=== PATIENT | female | born 1955 | race Caucasian/White ===

== ENCOUNTER 2020-06-28 18:30 | Emergency (ER) | payer MEDICARE | END 2020-06-28 20:35 | disposition home or self-care (01) | LOC: CSHERS 18:30 | DX: J06.9 Acute upper respiratory infection, unspecified (principal); J40 Bronchitis, not specified as acute or chronic; K21.9 Gastro-esophageal reflux disease without esophagitis; E78.5 Hyperlipidemia, unspecified; J44.9 Chronic obstructive pulmonary disease, unspecified; F17.290 Nicotine dependence, other tobacco product, uncomplicated | CPT/HCPCS: 99283 ==